=== PATIENT | female | born 1990 | race Caucasian/White ===

== ENCOUNTER 2019-12-06 13:19 | Emergency (ER) | payer BC ==
[2019-12-06 14:19] VITALS: BP 125/66
--- NOTE | 2019-12-06 14:33 | UC ---
Dental HPI - HPI Summary HPI Summary: L face pain/swelling that started last night. Pain w/ opening mouth. does not have dentist appt yet. Denies fever/chills, thompson. - History of Current Complaint Chief Complaint: UCDentalProblem Stated Complaint: L SIDE TOOTH COMP Time Seen by Provider: 12/06/19 14:31 Hx Obtained From: Patient Hx Last Menstrual Period: ~11/15/2019 Pain Intensity: 0 Aggravating Factor(s): Chewing Alleviating Factor(s): Nothing - Allergies/Home Medications Allergies/Adverse Reactions: Allergies Allergy/AdvReac Type Severity Reaction Status Date / Time No Known Allergies Allergy Verified 12/06/19 14:16 PMH/Surg Hx/FS Hx/Imm Hx Previously Healthy: Yes - Surgical History Surgical History: None - Family History Known Family History: Positive: Hypertension, Other - dental problems - Social History Alcohol Use: Rare Substance Use Type: Marijuana Substance Use Comment - Amount & Last Used: Daily Smoking Status (MU): Heavy Every Day Tobacco Smoker Type: Cigarettes Amount Used/How Often: 1/3 PPD Length of Time of Smoking/Using Tobacco: Since Age 9 Household Exposure Type: Cigarettes Review of Systems All Other Systems Reviewed And Are Negative: Yes Constitutional: Negative: Fever, Chills ENT: Positive: Dental Pain, Sinus Pain/Tenderness. Negative: Sore Throat, Ear Ache, Nasal Discharge Respiratory: Negative: Cough Cardiovascular: Negative: Chest Pain Gastrointestinal: Negative: Vomiting, Nausea Neurological: Negative: Headache Physical Exam Triage Information Reviewed: Yes Appearance: Well-Appearing Vital Signs: Initial Vital Signs Temp 98.4 F 12/06/19 14:13 Pulse 84 12/06/19 14:13 Resp 16 12/06/19 14:13 BP 125/66 12/06/19 14:13 Pulse Ox 100 12/06/19 14:13 Vital Signs Reviewed: Yes Eyes: Positive: Conjunctiva Clear ENT: Positive: Pharynx normal, TMs normal, Other - L facial swelling but no redness. Negative: Trismus Dental: Positive: Abscess @ - L upper molar Respiratory: Positive: No respiratory distress Dental Complaint Course/Dx - Course Course Of Treatment: Dental abscess w/ facial swelling, afebrile and strongly advised to see dental emily. Will tx w/ antibx. On exam no trismus. good vitals. - Differential Dx/Diagnosis Differential Diagnosis/Dx: Peridontic Disease, Peritonsillar Abcess, Tonsillitis , Other Provider Diagnosis: Dental abscess Discharge ED - Sign-Out/Discharge Documenting (check all that apply): Patient Departure All imaging exams completed and their final reports reviewed: No Studies - Discharge Plan Condition: Good Disposition: HOME Prescriptions: Amoxicillin/Clavulanate TAB* [Augmentin TAB 875*] 875 mg PO BID 10 Days #20 tab Patient Education Materials: Dental Abscess (ED) Referrals: No Primary Care Phys,NOPCP [Primary Care Provider] - Additional Instructions: Please make appt with dental within the next week. - Billing Disposition and Condition Condition: GOOD Disposition: Home - Attestation Statements Provider Attestation: I was available for consult. This patient was seen by the JANE. The patient was not presented to , seen by or examined by me -Buddy Smith MD
[2019-12-07 11:27] LABS: HIV 4th Generation Nonreactive (Nonreactive)
== END 2019-12-06 14:53 | disposition home or self-care (01) ==
LOC: UCCORT 13:19
DX: K04.7 Periapical abscess without sinus (principal); F17.210 Nicotine dependence, cigarettes, uncomplicated
CPT/HCPCS: 36415; 87389; 99202; G0463